=== PATIENT | female | born 1965 | race Caucasian/White ===

== ENCOUNTER 2024-07-10 08:11 | Outpatient (REF) | payer SELFPAY | END 2024-07-10 08:12 | disposition home or self-care (01) | LOC: HO.HOSX 08:11 | PROVIDERS: Visit Provider Physician Assistant | DX: M25.562 Pain in left knee (principal); M17.11 Unilateral primary osteoarthritis, right knee | CPT/HCPCS: 73560; 73562 ==

== ENCOUNTER 2024-07-10 09:52 | Outpatient (AMB) | payer OTHER, SELFPAY ==
--- NOTE | 2024-07-10 10:02 | MHC.OFFVIS ---
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 Patient reports that she has been having pain and burning from her right hip to the bottom of her foot. Allergies aspirin Allergy (Intermediate, Verified 07/10/24 10:09) Agitated Penicillins Allergy (Mild, Verified 07/10/24 10:09) Agitated acetaminophen [From Tylenol] Allergy (Verified 07/10/24 10:09) Agitated Medication List - Last Reconciled 07/10/24 by Elena Valerio PA-C gabapentin 800 mg PO TID HPI HPI ECHO TECHNICIAN OA Right Knee: Details: 59-year-old female who presents to the office today for an evaluation of right knee pain for over 2 years. She was seen at [facility] for her knee and presents today for a second opinion. She reports she has worsening pain and burning sensation in her bilateral knees that is worse on her right knee. Her pain radiates down to her foot and gets aggravated with stair use, walking long distances and at night. She takes gabapentin for her pain and has tried Tylenol, aspirin and physical therapy in the past. She had a Euflexxa gel injection previously that provided her some relief. She uses a walker at baseline. She is prediabetic. [facility] Surgical History (Updated 07/10/24 @ 10:12 by ALETHA Linder) H/O: hysterectomy History of bunionectomy of both great toes Social History (Updated 07/10/24 @ 10:12 by ALETHA Linder) Patient Tobacco Use Status: Never used Tobacco Review of Systems Const All systems reviewed & are unremarkable except as noted in HPI and below Physical Exam Vital Signs: BMI result Body Mass Index 50.1 Const General: cooperative, healthy appearing, comfortable, no acute distress, well developed and alert Orientation/consciousness: patient oriented x3 HEENT Head: Yes normal to inspection, Yes normocephalic and Yes atraumatic Eyes General: appearance normal, both eyes and all related structures Resp Effort & Inspection: normal respiratory effort and able to speak in complete sentences Cardio Rate: regular rate Peripheral pulses: Peripheral pulses 2+ throughout GI Palpation (GI): Soft to palpation Skin Lesions: no lesions Rashes: no rashes Neuro General: patient oriented x3 Extrem Other: Right knee: Skin intact, no erythema or joint effusion. Tenderness along the medial and lateral joint line. Full ROM with crepitus. Negative Rika?s. No ligamentous laxity. NVI. ? Assessment & Plan Assessment & Plan (1) Osteoarthritis of left knee: Code(s): M17.12 - Unilateral primary osteoarthritis, left knee Category: Medical Plan We discussed options today which include cortisone as well as gel injection which she declined. With her BMI being 50, she would be a high-risk candidate for a TKA. Ideally the BMI needs to be 40 or below with which she did express understanding but she would still like to meet with Dr. Neil to discuss further as this is her second opinion about having a TKA. An appointment was made before she left and she will follow-up as scheduled, sooner if needed. Orders: Orders XR knee LT 1V Today M25.562 - Pain in left knee XR knee RT 3V Today M17.11 - Unilateral primary osteoarthritis, right knee Patient Instructions: Scribed for Elena Valerio PA-C, by Hill Roberson nuclear medical tech, on 07/10/2024 at 10:15 AM EST.? I, Elena Valerio PA-C, have personally reviewed and agree with the information entered by the scribe. Coding Level of Care Code New Pt Level 3 (37691) Complex EM visit Add On G2211 Diagnoses Osteoarthritis of left knee M17.12
[2024-07-10 10:06] VITALS: BMI 50.1
== END 2024-07-10 10:52 | disposition home or self-care (01) ==
PROVIDERS: PCP Physician Assistant Medical; Visit Provider Physician Assistant
DX: M17.12 Unilateral primary osteoarthritis, left knee (principal)
CPT/HCPCS: 99203; G2211